=== PATIENT | female | born 1990 | race Caucasian/White ===

== ENCOUNTER → 2018-09-05 | Outpatient (CLI) | payer BC ==
[~2018-09-05] MED LIST: BCAA; BENADRYL25 MG PO; BENTYL 20 MG TA20 M1 PO; ERYTHROMYCIN E3.5 G3 OPHTHALMIC; FLAGYL500 MG PO; FLEXERIL PO; FLONASE 0.05%50 MCG NS; METROGEL-VAGINA70 GM VG; NAPROSYN500 MG PO; NORCO 5-325 TA1 EAC1 PO; NORCO 5-325 TA1 EACH PO; PEPCID40 MG PO; PERCOCET 5-3251 EACH PO; PREDNISONE 20 M20 M1 PO; PRENATAL; ROBAXIN500 MG PO; TIZANIDINE HCL 22 MG PO; UNICOMPLEX M TA1 TA1 PO; VICODIN 5-5001 EACH PO; ZOLOFT 50 MG TA50 M1; [UNRECOGNIZED DRUG - OTHER]
== END ==
LOC: M.NUC 07:30 → M.ULTRA 10:41
DX: K31.84 Gastroparesis (principal); R68.81 Early satiety; R10.9 Unspecified abdominal pain

== ENCOUNTER 2019-02-09 13:28 | Emergency (ER) | payer BC ==
[~2019-02-09] VITALS: Ht 160 cm; Wt 60.3 kg
[2019-02-09 14:48] VITALS: BP 110/71
== END 2019-02-09 14:49 | disposition home or self-care (01) ==
LOC: M.ERS 13:28
DX: S60.021A Contusion of right index finger without damage to nail, initial encounter (principal); N80.9 Endometriosis, unspecified; Z90.49 Acquired absence of other specified parts of digestive tract; Z98.890 Other specified postprocedural states; Z88.1 Allergy status to other antibiotic agents; X50.9XXA Other and unspecified overexertion or strenuous movements or postures, initial encounter; Y93.89 Activity, other specified; Y92.89 Other specified places as the place of occurrence of the external cause; Y99.8 Other external cause status

== ENCOUNTER → 2019-05-15 | Outpatient (CLI) | payer BC | LOC: M.SLEEPLAB 08:51 | DX: R06.83 Snoring (principal); R40.0 Somnolence ==

== ENCOUNTER 2020-07-09 11:22 | Emergency (ER) | payer BC ==
[~2020-07-09] VITALS: Ht 160 cm; Wt 62.6 kg
[2020-07-09 12:05] LABS: ABSOLUTE BASOPHILS 0.1 thou/uL (0.0-0.2); ABSOLUTE LYMPHOCYTES 1.8 thou/uL (0.8-5.3); ABSOLUTE MONOCYTES 0.5 thou/uL (0.0-1.2); ABSOLUTE NEUTROPHILS 5.5 thou/uL (1.6-8.1); BASOPHILS 0.7 %; EOSINOPHILS 0.3 %; HEMATOCRIT 42.8 % (37.0-47.0); HEMOGLOBIN 14.6 gm/dL (12.0-15.0); LYMPHOCYTES 22.8 %; MCH 30.7 pg (26.0-34.0); MCHC 34.1 g/dL (28.0-37.0); MCV 90.1 fL (80.0-100.0); MONOCYTES 5.9 %; MPV 8.1 fl. (7.2-11.1); NUCLEATED RBCS 0 /100WBC; PLATELET COUNT* 267 thou/uL (150-400); POLYS 70.3 %; RBC 4.75 mil/uL (4.20-5.00); RDW-CV 13.4 % (10.5-14.5); WBC 7.8 thou/uL (4.0-11.0)
[2020-07-09 12:12] LABS: CREATININE 0.9 mg/dL (0.6-1.3); POTASSIUM 3.8 mmol/L (3.5-5.1)
[2020-07-09 12:16] LABS: ALBUMIN 4.5 g/dL (3.4-5.0); TOTAL BILIRUBIN 0.5 mg/dL (<0.1-1.0); TOTAL PROTEIN 8.2 g/dL (6.4-8.2)
[2020-07-09 12:28] LABS: URINE BILIRUBIN NEGATIVE (Negative); URINE BLOOD NEGATIVE (Negative); URINE CLARITY CLEAR; URINE COLOR YELLOW; URINE GLUCOSE-RANDOM NEGATIVE (Negative); URINE KETONES NEGATIVE (Negative); URINE LEUKOCYTES-REFLEX NEGATIVE (Negative); URINE NITRITE-REFLEX NEGATIVE (Negative); URINE PROTEIN NEGATIVE (Negative); URINE SPECIFIC GRAVITY <= 1.005 (1.005-1.030); URINE UROBILINOGEN 0.2 E.U./dl (0.2-1.0)
[2020-07-09 13:12] VITALS: BP 113/80
== END 2020-07-09 13:13 | disposition home or self-care (01) ==
LOC: M.ERS 11:22
PROVIDERS: Emergency Medicine
DX: F41.9 Anxiety disorder, unspecified (principal); R51 Headache; Z98.890 Other specified postprocedural states; Z90.49 Acquired absence of other specified parts of digestive tract; Z88.1 Allergy status to other antibiotic agents